=== PATIENT | female | born 1955 | race Two or more races ===

== ENCOUNTER 2023-04-15 10:09 | Emergency (ER) | payer BC ==
[2023-04-15 10:33] VITALS: TEMP 98.2; BMI 29.4
[2023-04-15] MEDS ORDERED: EPINEPHrine/PF 1 MG/1 ML (1:1,000) AMPULE ONE (10:36)
[2023-04-15] MEDS ORDERED: EPINEPHrine 1:1,000 0.3 MG/0.3 ML SYR IM ONE (10:41)
[2023-04-15] MEDS ORDERED: FAMOTIDINE 20 MG/50 ML IVPB 20 MG/50 ML MG IVPB ONE ×2 (10:42→10:46)
[2023-04-15] MEDS ORDERED: methylPREDNISolone NA SUCC 125 MG/2 ML VIAL IVPUSH ONE (10:42)
[2023-04-15] MEDS ORDERED: methylPREDNISolone NA SUCC 125 MG/2 ML VIAL ONE (10:46)
[2023-04-15 10:53] LABS: BASO % 1.1 % (0-2.0); HEMATOCRIT 40.7 % (32.4-45.2); HEMOGLOBIN 13.8 GM/dL (10.7-15.3); LYMPH % 37.4 % (8-40); MCH 28.8 pg (25.7-33.7); MEAN CELL VOLUME 84.8 fl (80-96); MEAN PLT VOLUME 9.5 fl (7.5-11.1); MONO % 4.9 % (3.8-10.2); NEUT % 54.6 % (42.8-82.8); PLATELET COUNT 303 10^3/uL (134-434); RDW 14.4 % (11.6-15.6); WHITE BLOOD COUNT 8.8 K/mm3 (4.0-10.0)
[2023-04-15 11:13] LABS: POTASSIUM 4.2 mmol/L (3.5-5.1)
[2023-04-15 11:16] LABS: ALBUMIN 3.8 g/dl (3.4-5.0); BLOOD UREA NITROGEN 17.8 mg/dL (7-18); CALCIUM 10.1 mg/dL (8.5-10.1)
[2023-04-15 11:19] LABS: CREATININE 1.1 mg/dL (0.55-1.3)
[2023-04-15 11:21] LABS: BILIRUBIN,TOTAL 0.4 mg/dL (0.2-1); TOT PROT 8.5 g/dl (6.4-8.2)
[2023-04-15 13:44] VITALS: RESP 18
[2023-04-15 16:31] VITALS: BP 143/85; PULSE 85
== END 2023-04-15 17:15 | disposition home or self-care (01) ==
LOC: JER 10:09
PROC: 3E033GC Introduction of Other Therapeutic Substance into Peripheral Vein, Percutaneous Approach (ICD-10-PCS; principal; 2023-04-15)
PROC: 3E033GC Introduction of Other Therapeutic Substance into Peripheral Vein, Percutaneous Approach (ICD-10-PCS; 2023-04-15)
PROC: 3E033GC Introduction of Other Therapeutic Substance into Peripheral Vein, Percutaneous Approach (ICD-10-PCS; 2023-04-15)
PROC: 3E023GC Introduction of Other Therapeutic Substance into Muscle, Percutaneous Approach (ICD-10-PCS; 2023-04-15)
DX: U07.1 COVID-19 (principal); T78.2XXA Anaphylactic shock, unspecified, initial encounter; L50.0 Allergic urticaria; R47.89 Other speech disturbances
CPT/HCPCS: 0241U-QW; 36415; 71045-TC-FY; 80053; 84484; 85025; 93005; 93010; 99284-25; J0171